=== PATIENT | male | born 1940 | race Caucasian/White ===

== ENCOUNTER → 2020-07-06 08:42 | Outpatient (BNVA) | payer OTHER, SELFPAY | PROVIDERS: PCP Internal Medicine; Visit Provider Urology | DX: N40.1 Benign prostatic hyperplasia with lower urinary tract symptoms (principal); R35.0 Frequency of micturition | CPT/HCPCS: 51798; 99212 ==

== ENCOUNTER → 2021-05-08 14:55 | Outpatient (BNVA) | payer OTHER, SELFPAY | PROVIDERS: PCP Internal Medicine; Visit Provider Urology ==

== ENCOUNTER 2021-11-09 13:11 | Outpatient (REF) | payer OTHER, SELFPAY ==
[2021-11-09 14:56] LABS: PSA,Total (Free>4and<10) 6.52 ng/mL (0.00-4.00)
[2021-11-12 12:32] LABS: Free Prostate Spec Ag 2.6 ng/mL; Percent Free Prostate Spec Ag 50 % (calc) (>25); Prostate Specific Ag Total 5.2 ng/mL (< OR = 4.0)
== END 2021-11-09 13:12 | disposition home or self-care (01) ==
LOC: HO.LAB 13:11
PROVIDERS: PCP Internal Medicine; Visit Provider Urology
DX: Z12.5 Encounter for screening for malignant neoplasm of prostate (principal); N40.1 Benign prostatic hyperplasia with lower urinary tract symptoms; N40.0 Benign prostatic hyperplasia without lower urinary tract symptoms; N13.8 Other obstructive and reflux uropathy
CPT/HCPCS: 36415; 84153; 84154

== ENCOUNTER → 2021-11-13 12:05 | Outpatient (BNVA) | payer OTHER, SELFPAY | PROVIDERS: PCP Internal Medicine; Visit Provider Urology | DX: R97.20 Elevated prostate specific antigen [PSA] (principal); N40.0 Benign prostatic hyperplasia without lower urinary tract symptoms ==

== ENCOUNTER 2022-05-10 14:08 | Outpatient (REF) | payer OTHER, SELFPAY ==
[2022-05-10 16:01] LABS: PSA,Total (Free>4and<10) 4.94 ng/mL (0.00-4.00)
[2022-05-13 09:07] LABS: Free Prostate Spec Ag 2.9 ng/mL; Percent Free Prostate Spec Ag 55 % (calc) (>25); Prostate Specific Ag Total 5.3 ng/mL (< OR = 4.0)
== END 2022-05-10 14:09 | disposition home or self-care (01) ==
LOC: HO.LAB 14:08
PROVIDERS: PCP Internal Medicine; Visit Provider Urology
DX: Z12.5 Encounter for screening for malignant neoplasm of prostate (principal); N13.8 Other obstructive and reflux uropathy; N40.1 Benign prostatic hyperplasia with lower urinary tract symptoms; R97.20 Elevated prostate specific antigen [PSA]
CPT/HCPCS: 36415; 84153; 84154

== ENCOUNTER 2022-05-15 13:27 | Outpatient (REF) | payer OTHER, SELFPAY ==
[2022-05-15 15:42] LABS: Urine Cytology See Pathology rpt
== END 2022-05-15 13:28 | disposition home or self-care (01) ==
LOC: HO.LAB 13:27
PROVIDERS: PCP Internal Medicine; Visit Provider Urology
DX: R31.29 Other microscopic hematuria (principal); R97.20 Elevated prostate specific antigen [PSA]; N40.1 Benign prostatic hyperplasia with lower urinary tract symptoms; R39.14 Feeling of incomplete bladder emptying; R39.12 Poor urinary stream
CPT/HCPCS: 51798; 88112; 99212